=== PATIENT | male | born 1955 | race Caucasian/White ===

== ENCOUNTER 2017-02-03 14:31 | Emergency (ER) | payer OTHER ==
[~2017-02-03] VITALS: Ht 190.5 cm; Wt 115.0 kg
[2017-02-03 14:35] VITALS: BP 184/94; PULSE 82; RESP 14; TEMP 98.8; O2SAT 95
[2017-02-03 14:56] VITALS: BP 175/100
[2017-02-03 15:11] VITALS: BP 163/86
[2017-02-03] MEDS ORDERED: ROBA500T PO (15:18)
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
== END 2017-02-03 15:30 | disposition home or self-care (01) ==
LOC: NEPD 14:31
DX: M62.838 Other muscle spasm (principal)
CPT/HCPCS: 99283